=== PATIENT | male | born 1985 ===

== ENCOUNTER 2017-04-26 16:01 | Emergency (ER) | payer OTHER ==
[2017-04-26 16:15] VITALS: BP 97/62; PULSE 58; RESP 16; TEMP 98.3; O2SAT 97; BMI 22.4
--- NOTE | 2017-04-26 16:21 | C.PDOC ---
History Of Present Illness A 31 year old female, who denies any significant past medical history, presents to the emergency department for a right lower toothache, which began several days ago. The patient reports she also has mild facial swelling, which began earlier this morning. The patient notes she has had similar complaints before. Pt denies fever, chills, recent dental work, trismus, drooling, sore throat, wheezing, shortness of breath, or any other complaints at this time. Amblate to ED for evaluation, not in any apparent distress. Time Seen by Provider: 04/26/17 16:08 Chief Complaint (Nursing): Dental Pain History Per: Patient History/Exam Limitations: no limitations Onset/Duration Of Symptoms: Days (x few days ) Current Symptoms Are (Timing): Still Present Past Medical History Vital Signs: Last Vital Signs Temp 98.3 F 04/26/17 16:09 Pulse 58 L 04/26/17 16:09 Resp 16 04/26/17 16:09 BP 97/62 L 04/26/17 16:09 Pulse Ox 97 04/26/17 16:37 Family History: States: Unknown Family Hx - Social History Hx Alcohol Use: Yes Hx Substance Use: No - Immunization History Hx Tetanus Toxoid Vaccination: Yes Hx Influenza Vaccination: No Hx Pneumococcal Vaccination: Yes Review Of Systems Except As Marked, All Systems Reviewed And Found Negative. Constitutional: Negative for: Fever ENT: Positive for: Other ((+)right lower tooth pain (-) trismus) Respiratory: Negative for: Shortness of Breath, Wheezing Physical Exam - Physical Exam Appears: Well, Non-toxic, No Acute Distress Skin: Normal Color, Warm, No Rash Eye(s): bilateral: PERRL Ear(s): Bilateral: Normal Nose: No Flaring, No Discharge Oral Mucosa: Moist, No Drooling, No Trismus Tongue: Normal Appearing Lips: Normal Appearing Teeth: Avulsed (Right 1st lower premolar carious root), Other (poor dental hygiene) Gingiva: Erythema (mild over Right lower 1st premolar), Swelling, No Bleeding, No Abscess Throat: No Erythema, No Exudate, No Drooling Neck: Trachea Midline, Supple Lymphatic: No Adenopathy (cervical) Chest: Symmetrical Respiratory: No Decreased Breath Sounds, No Accessory Muscle Use, No Stridor, No Wheezing Extremity: No Swelling Neurological/Psych: Oriented x3, Normal Speech ED Course And Treatment O2 Sat by Pulse Oximetry: 97 Pulse Ox Interpretation: Normal Progress Note: On re-evaluation, pt is afebrile, hemodynamicaly stable. Non- toxic. Tolerate PO well in ED. PUlseOx 97% RA. ENT: exam c/w mild Right lower gingivitis r/o early abscess of Right lower 1st premolar, no drooling, no trismus, no evidence of tooth abscess. no drooling or trismus. Uvula midline, no edema. Neck: Supple. Lungs: CTA B/L, BS equal B/L. Skin: no rash. PT has clinical findings c/w toothache, gingivitis r/o early abscess. Pt denies any allergy to medication including PCN. Pt advised. ref. to f/u with Dentist in 2 -3 days for re-eavl. return if any new changes. Medical Decision Making Medical Decision Making: Treatment Plan: -- Motrin, Penicillin Progress Notes: Disposition Counseled Patient/Family Regarding: Diagnosis, Need For Followup, Rx Given - Disposition Referrals: [facility] [Provider Group] [facility] [place] [Provider Group] Disposition: HOME/ ROUTINE Disposition Time: 16:26 Condition: STABLE Additional Instructions: Take medication as prescribed Tooth baths with warm salty water 2-3 times daily for 5 minutes Follow up with Dentist in 2-3 days for re-evaluation. Return to ED if any worsening or new changes. Prescriptions: Ibuprofen [Motrin Tab] 600 mg PO Q6 #30 tab Penicillin VK [Penicillin VK Tab] 250 mg PO Q6H #28 tab Instructions: Toothache (ED) Forms: [employer] (Portuguese) - Clinical Impression Clinical Impression: Gingivitis, Tooth ache - Scribe Statement The provider has reviewed the documentation as recorded by the Scribe Sugey Campos All medical record entries made by the Scribe were at my direction and personally dictated by me. I have reviewed the chart and agree that the record accurately reflects my personal performance of the history, physical exam, medical decision making, and the department course for this patient. I have also personally directed, reviewed, and agree with the discharge instructions and disposition.
== END 2017-04-26 16:40 | disposition home or self-care (01) ==
LOC: C.ER 16:01
DX: K05.10 Chronic gingivitis, plaque induced (principal); K08.89 Other specified disorders of teeth and supporting structures; F17.210 Nicotine dependence, cigarettes, uncomplicated